=== PATIENT | female | born 1995 | race Asian ===

== ENCOUNTER 2018-08-31 11:36 | Emergency (ER) | payer OTHER ==
--- NOTE | 2018-08-31 12:00 | PHYS DOC ---
Adult General Chief Complaint Chief Complaint: FLANK PAIN HPI HPI Patient is a 22 year old female who presents with in of right flank and back pain. Patient is at 21 weeks of gestation and states she had episodes of back pain and right flank pain getting care for the last 2 months but since this morning she had more pain in right flank without radiation. Patient denies urinary symptoms, abdominal pain or construction, vaginal bleeding or discharge, fever and chills, nausea and vomiting. Patient states she feels movement without problem. Review of Systems Review of Systems Constitutional: Denies fever or chills [] Eyes: Denies change in visual acuity, redness, or eye pain [] HENT: Denies nasal congestion or sore throat [] Respiratory: Denies cough or shortness of breath [] Cardiovascular: No additional information not addressed in HPI [] GI: Denies abdominal pain, nausea, vomiting, bloody stools or diarrhea [] : Denies dysuria or hematuria [] Musculoskeletal: Denies back pain or joint pain [] Integument: Denies rash or skin lesions [] Neurologic: Denies headache, focal weakness or sensory changes [] Endocrine: Denies polyuria or polydipsia [] All other systems were reviewed and found to be within normal limits, except as documented in this note. Physical Exam Physical Exam Constitutional: Well developed, well nourished, no acute distress, non-toxic appearance. [] HENT: Normocephalic, atraumatic Eyes: PERRLA, EOMI, conjunctiva normal, no discharge. [] Neck: Normal range of motion, no tenderness, supple, no stridor. [] Cardiovascular:Heart rate regular rhythm, no murmur [] Lungs & Thorax: Bilateral breath sounds clear to auscultation [] Abdomen: Bowel sounds normal, soft, no tenderness, no masses, no pulsatile masses him a gravid abdomen, no contraction, patient refused heart rate check. [] Skin: Warm, dry, no erythema, no rash. [] Back: No tenderness, no CVA tenderness. [] Extremities: No tenderness, no cyanosis, no clubbing, ROM intact, no edema. [] Neurologic: Alert and oriented X 3, normal motor function, normal sensory function, no focal deficits noted. [] Psychologic: Affect normal, judgement normal, mood normal. [] EKG EKG [] Radiology/Procedures Radiology/Procedures [] Course & Med Decision Making Course & Med Decision Making Pertinent Labs reviewed. (See chart for details) Evolution of patient in ER showed 22-year-old female patient at 29 weeks of gestation with complaining of right flank pain since this morning. Patient had unremarkable physical exam and labs showed UTI. Patient informed that she is to follow with her [facility] at [facility] that has [facility] for monitoring then she refused to have the heart rate check and wanted to go to her [facility] and did not want to have prescription of antibiotic for her UTI. Dragon Disclaimer Dragon Disclaimer This electronic medical record was generated, in whole or in part, using a voice recognition dictation system. Departure Departure: Disposition: 01 HOME, SELF-CARE (at 1157 to follow-up with [facility] today) Condition: STABLE Referrals: PCP,NO (PCP) Patient Instructions: - Urinary Tract Infection Additional Instructions: Follow-up with your [facility] at [facility] after discharge from this emergency room TOM SOFIA MD Aug 31, 2018 12:00
[2018-08-31 12:31] LABS: CLARITY,URINE HAZY; COLOR,URINE YELLOW
[2018-08-31 12:32] LABS: BILIRUBIN,URINE NEG (NEG); GLUCOSE,URINE NEG (NEG); NITRITE,URINE NEG (NEG); UROBILINOGEN,URINE 0.2 mg/dL (0.2 mg/dL)
== END 2018-08-31 12:08 | disposition home or self-care (01) ==
LOC: ER 11:36
DX: O23.42 Unspecified infection of urinary tract in pregnancy, second trimester (principal); Z3A.21 21 weeks gestation of pregnancy
CPT/HCPCS: 81003; 99282